=== PATIENT | female | born 1985 | race Two or more races ===

== ENCOUNTER 2020-05-31 10:27 | Outpatient (CLI) | payer OTHER | END 2020-05-31 10:48 | disposition home or self-care (01) | LOC: SONOGRAMA 10:27 | PROVIDERS: ATTEND Obstetrics & Gynecology | DX: N84.0 Polyp of corpus uteri (principal); R93.5 Abnormal findings on diagnostic imaging of other abdominal regions, including retroperitoneum; D25.1 Intramural leiomyoma of uterus; D25.2 Subserosal leiomyoma of uterus ==

== ENCOUNTER 2020-07-22 06:28 | Day surgery (SDC) | payer OTHER ==
[~2020-07-22 06:28] MED LIST: SYNTHROID88 MCG PO
[2020-07-22] MEDS ORDERED: MEFENAMIC ACID250 MG PO (09:36)
== END 2020-07-22 17:05 | disposition home or self-care (01) ==
LOC: CIR.AMB 06:28
PROVIDERS: ATTEND Obstetrics & Gynecology
DX: D25.0 Submucous leiomyoma of uterus (principal); N84.0 Polyp of corpus uteri; Z20.822 Contact with and (suspected) exposure to COVID-19